=== PATIENT | male | born 1995 | race American Indian/Alaskan Native ===

== ENCOUNTER 2018-03-13 05:53 | Emergency (ER) | payer SELFPAY ==
--- NOTE | 2018-03-13 08:13 | Emergency Department Report ---
ED ENT HPI - General Chief complaint: Dental/Oral Stated complaint: TOOTHACHE Time Seen by Provider: 03/13/18 07:41 Source: patient Mode of arrival: Ambulatory Limitations: No Limitations - History of Present Illness Initial comments: This is a 22-year-old -[place] male that presents with left lower tooth pain for 2 days. Patient reports pain has increased over the past 2 days. He is not taking anything for symptom control. He is able to tolerate eating and cold or hot liquids. Patient just recently moved here from [place] and not sure if his insurance transferred over to follow-up with the dentist. Denies drooling, sore throat, fever, difficulty swallowing, and chest pain. MD complaint: tooth pain Onset/Timin -: days(s) Location: tooth # (#17) 1 - Dental caries, with surrounding mucosal swelling Severity: moderate Severity scale (0 -10): 7 Quality: stabbing, aching Consistency: constant Improves with: none Worsens with: eating Context- Dental: history of dental caries Associated Symptoms: gum swelling, toothache. denies: fever, cough, pain with swallowing, sore throat, tinnitus, hearing loss, discharge from ear, rhinorrhea - Related Data Previous Rx's Medication Instructions Recorded Last Taken Type Amoxicillin/Potassium Clav 1 each PO BID #14 tablet 03/13/18 Unknown Rx [Augmentin 500-125 Tablet] Naproxen [Naprosyn] 500 mg PO BID PRN #15 tablet 03/13/18 Unknown Rx traMADol [Ultram 50 MG tab] 50 mg PO Q6HR PRN #15 tablet 03/13/18 Unknown Rx Allergies Allergy/AdvReac Type Severity Reaction Status Date / Time No Known Allergies Allergy Verified 03/13/18 06:24 ED Dental HPI - General Chief complaint: Dental/Oral Stated complaint: TOOTHACHE Time Seen by Provider: 03/13/18 07:41 Source: patient Mode of arrival: Ambulatory Limitations: No Limitations - Related Data Previous Rx's Medication Instructions Recorded Last Taken Type Amoxicillin/Potassium Clav 1 each PO BID #14 tablet 03/13/18 Unknown Rx [Augmentin 500-125 Tablet] Naproxen [Naprosyn] 500 mg PO BID PRN #15 tablet 03/13/18 Unknown Rx traMADol [Ultram 50 MG tab] 50 mg PO Q6HR PRN #15 tablet 03/13/18 Unknown Rx Allergies Allergy/AdvReac Type Severity Reaction Status Date / Time No Known Allergies Allergy Verified 03/13/18 06:24 ED Review of Systems ROS: Stated complaint: TOOTHACHE Other details as noted in HPI Constitutional: denies: chills, fever ENT: dental pain (left lower side #17). denies: ear pain, throat pain, hearing loss, epistaxis, congestion Respiratory: denies: cough, shortness of breath, wheezing Cardiovascular: denies: chest pain, palpitations Gastrointestinal: denies: abdominal pain, nausea, diarrhea Neurological: denies: headache, weakness, paresthesias Psychiatric: denies: anxiety, depression ED Past Medical Hx - Past Medical History Previous Medical History?: Yes Hx Asthma: Yes (childhood) Additional medical history: nephrotic syndrome, biopsy on kidney - Social History Smoking Status: Never Smoker Substance Use Type: Alcohol - Medications Home Medications: Home Medications Medication Instructions Recorded Confirmed Last Taken Type Amoxicillin/Potassium Clav 1 each PO BID #14 tablet 03/13/18 Unknown Rx [Augmentin 500-125 Tablet] Naproxen [Naprosyn] 500 mg PO BID PRN #15 tablet 03/13/18 Unknown Rx traMADol [Ultram 50 MG tab] 50 mg PO Q6HR PRN #15 tablet 03/13/18 Unknown Rx ED Physical Exam - General Limitations: No Limitations General appearance: alert, in no apparent distress - ENT ENT exam: Present: mucous membranes moist, other (dental caries #17, surrounding mucosal swelling, tenderness) - Respiratory Respiratory exam: Present: normal lung sounds bilaterally. Absent: respiratory distress - Cardiovascular Cardiovascular Exam: Present: regular rate, normal rhythm. Absent: systolic murmur, diastolic murmur, rubs, gallop - GI/Abdominal GI/Abdominal exam: Present: soft, normal bowel sounds - Neurological Exam Neurological exam: Present: alert, oriented X3 - Psychiatric Psychiatric exam: Present: normal affect, normal mood - Skin Skin exam: Present: warm, dry, intact, normal color. Absent: rash ED Course Vital Signs 03/13/18 06:25 Temperature 98.6 F Pulse Rate 47 L Respiratory 18 Rate Blood Pressure 136/67 O2 Sat by Pulse 99 Oximetry ED Medical Decision Making - Medical Decision Making This is a 22-year-old male that presents with toothache at #17 for 2 days. Patient is stable and was examined by me. Vitals are normal. Given tramadol once in ER. Susceptible of dental caries. Discussed plan with patient. Discharged home with Augmentin and tramadol. Follow up with dentist and referrals given to Emergency dental clinic. Critical care attestation.: If time is entered above; I have spent that time in minutes in the direct care of this critically ill patient, excluding procedure time. ED Disposition Clinical Impression: Dental caries, Toothache Disposition: TO HOME OR SELFCARE Is pt being admited?: No Does the pt Need Aspirin: No Condition: Stable Instructions: Dental Caries (ED), Toothache (ED) Additional Instructions: Complete all days of Augmentin as prescribed for 7 days. Take tramadol or ibuprofen every 6 hours as needed for pain. Follow up with Dentist at [facility] in 24-72 hours. Prescriptions: Amoxicillin/Potassium Clav [Augmentin 500-125 Tablet] 1 each PO BID #14 tablet Naproxen [Naprosyn] 500 mg PO BID PRN #15 tablet PRN Reason: Pain, Moderate (4-6) traMADol [Ultram 50 MG tab] 50 mg PO Q6HR PRN #15 tablet PRN Reason: Pain Referrals: [facility] [Outside] - 3-5 Days [facility] [Outside] - 3-5 Days [facility] [Outside] - 3-5 Days Time of Disposition: 08:18 Print Language: NEPALI
[2018-03-13] MEDS ORDERED: ULTRAM PO ONE (08:14)
[2018-03-13 10:13] VITALS: BP 135/62
== END 2018-03-13 10:14 | disposition home or self-care (01) ==
LOC: ED 05:53
DX: K02.9 Dental caries, unspecified (principal); J45.909 Unspecified asthma, uncomplicated
CPT/HCPCS: 99282